=== PATIENT | female | born 1990 | race Caucasian/White ===

== ENCOUNTER 2019-11-05 23:35 | Emergency (ER) | payer SELFPAY ==
[2019-11-05 23:41] VITALS: BP 132/87; PULSE 99; RESP 30; TEMP 36.6; O2SAT 97; BMI 42.0
--- NOTE | 2019-11-06 00:02 | XRR_ITS ---
PROCEDURE INFORMATION: Exam: XR Chest, 2 Views Exam date and time: 11/06/2019 12:31 AM Age: 28 years old Clinical indication: Cough and dyspnea; Additional info: Cough, SOB TECHNIQUE: Imaging protocol: XR of the chest Views: 2 views. COMPARISON: No relevant prior studies available. FINDINGS: Lungs: Unremarkable. No consolidation. Pleural space: Unremarkable. No pleural effusion. No pneumothorax. Heart/Mediastinum: Unremarkable. No cardiomegaly. Bones/joints: Unremarkable. XR/XR chest 2V* [id number] IMPRESSION: No acute findings.
--- NOTE | 2019-11-06 00:48 | ED_ITS ---
HPI - SOB/Dyspnea General: Chief Complaint: Shortness of Breath/Dyspnea Stated Complaint: sob Time Seen by Provider: 11/06/19 00:02 Source: patient Mode of arrival: ambulatory Limitations: no limitations History of Present Illness: HPI Narrative: Patient comes in with shortness of breath. Patient reports since she has had a cough and today she is felt more short of breath than usual. Patient appears mildly unwell. Patient appears in no acute distress. Review of Systems General: Reports: 10 or more systems reviewed and unremarkable except in HPI and below Resp: Reports: dyspnea Physical Exam Const: COMMON NORMALS: no acute distress and patient oriented x3 GENERAL APPEARANCE: cooperative HENMT: COMMON NORMALS: normocephalic and Normal external nose present HEAD & SCALP: normal to inspection and normocephalic NOSE: Normal external nose present MOUTH: Normal oral and palatal mucosa present THROAT: posterior or opharynx normal Eye: GENERAL EYE: appearance normal, both eyes and all related structures Neck/C-Spine: COMMON NORMALS: full ROM Lymph: LYMPHATIC: no lymphadenopathy noted Chest: COMMONS NORMALS: normal inspection of the chest Resp: COMMON NORMALS: No retractions and No use of accessory muscles EFFORT & INSPECTION: Yes able to speak in complete sentences and Yes abnormal respiratory pattern Cardio: COMMON NORMALS: regular rate and regular rhythm RATE: regular rate RHYTHM: regular rhythm GI: COMMON NORMALS: non-tender Back/Pelvis: COMMON NORMALS: thoracic and lumbar spine normal to inspection Extremity: COMMON NORMALS: normal to inspection Neuro: COMMON NORMALS: patient oriented x3 and moves all extremities Psych: COMMON NORMALS: mental status grossly normal and cooperative Skin: COMMON NORMALS: no rashes or lesions noted GENERAL SKIN EXAM: no rashes or lesions noted Course Vital Signs: Vital signs: Vital Signs Temperature 97.9 F 11/05/19 23:41 Pulse Rate 106 H 11/06/19 01:33 Respiratory Rate 22 H 11/06/19 01:33 Blood Pressure 132/87 11/05/19 23:41 Pulse Oximetry 96 11/06/19 01:33 MDM - SOB/Dyspnea MDM Narrative: Medical decision making narrative: Patient comes in today for complaints of increased shortness of breath with cough for the last 3 days. Patient appears well. Lungs are decreased in the bases but no adventitious sounds are noted. Heart rates regular. Vital signs are normal. Differential diagnosis includes upper respiratory infection, bronchitis, pneumonia. Chest x- ray noted no signs of pneumonia at this time. Patient was given the albuterol inhaler with 2 puffs and did report some improvement in shortness of breath. We will go ahead and do COVID testing on patient I recommend self quarantine until test results. Patient was written for 3 days off work with need for follow-up with primary care in 1 week or return to the ER for worsening symptoms. Patient reports understanding and agreed to plan. Discharge Plan Discharge Patient Disposition: Home, Self-Care Clinical Impression: Acute bronchitis Qualifiers: Bronchitis organism: unspecified organism Qualified Code(s): J20.9 - Acute bronchitis, unspecified Condition: Stable Discharge Orders: Discharge Order (Routine); Ordered 11/06/19 Ordered By: Ayan Byrd Discharge Diet: Usual diet Discharge Activity: Increase activity as tolerated Patient Instructions: Acute Bronchitis (ED) Activity Restrictions/Additional Instructions: Use albuterol 2 puffs every 4 hours as needed for shortness of breath. Use at least 3-4 times a day for the next 3 days. Self quarantine for the next 3 days until COVID testing comes back. Drink plenty of water use acetaminophen or ibuprofen for pain or fever. Return to the ER for worsening difficulty breathing or new concerns. Stand Alone Forms: Work/School Release Coding Level of Care Code ED Vehicle Return Associate for [facility] Exam Comprehensive
[2019-11-06] MEDS: albuterol 8 gm MDI 2 PUFF INHALATION (01:31)
[2019-11-06 01:33] VITALS: PULSE 106; RESP 22; O2SAT 96
[2019-11-06 02:08] VITALS: BP 149/102; PULSE 110; RESP 18; O2SAT 99
[2019-11-07 23:50] LABS: Quest SARS-CoV-2 RNA NOT DETECTED (NOT DETECTED)
== END 2019-11-06 02:10 | disposition home or self-care (01) ==
PROVIDERS: Emergency Provider Nurse Practitioner Family
DX: J20.9 Acute bronchitis, unspecified (principal)
CPT/HCPCS: 12345; 71046; 87635; 94640; 99282; 99283; J3535

== ENCOUNTER 2020-02-08 04:53 | Emergency (ER) | payer SELFPAY ==
[2020-02-08 05:04] VITALS: BP 144/104; PULSE 83; RESP 17; TEMP 36.4; O2SAT 99; BMI 36.6
[2020-02-08 05:09] VITALS: BP 152/106; PULSE 84; RESP 18; O2SAT 99
--- NOTE | 2020-02-08 05:09 | W.ED.DENTAL ---
HPI - Dental/Oral General: Chief complaint: Dental/Oral Stated complaint: DENTAL PAIN Time Seen by Provider: 02/08/20 05:05 Source: patient Mode of arrival: ambulatory Limitations: no limitations History of Present Illness: HPI Narrative: Daniela is a very nice 29-year-old female who comes in complaining of right upper dental pain. She states the pain is in the posterior most molar. Patient was seen by me the previous night and a side consult and was placed on clindamycin. At that time she had no swelling at this time she still has no swelling. He states is just pain. She denies any difficulty swallowing, vomiting, difficulty speaking or fever. Associated symptoms: Denies ear or mastoid pain, fever(s), odynophagia or tongue swelling Review of Systems Const: Denies: fever(s), chills, body aches, fatigue, malaise or diaphoresis Eyes: Denies: change in vision, blurry vision, photophobia, eye discomfort, eye discharge, eye redness or yellow eyes ENMT: Reports: dental pain; Denies: throat pain, odynophagia, hoarseness, swelling of lips/tongue, ear or mastoid pain, ear discharge, change in hearing or nasal discharge Card: Denies: chest pain, palpitations, irregular heart rhythm, edema, lightheadedness, syncope, pre-syncope, dyspnea on exertion or orthopnea Resp: Denies: dyspnea, productive cough, non-productive cough, wheezing, hemoptysis or chest congestion GI: Denies: abdominal pain, nausea, vomiting, hematemesis, coffee ground emesis, heartburn, diarrhea, constipation, GI cramping, hematochezia or melena : Denies: flank pain, dysuria, urinary frequency, urinary urgency or hematuria Musc: Denies: neck pain, back pain, extremity pain, extremity swelling, joint pain, joint swelling, joint redness, joint warmth or joint stiffness Skin/Breast: Denies: rash, pruritus, erythema, skin pain or skin tenderness Neuro: Denies: headache(s), numbness in extremities, weakness in extremities, sensory changes, lack of coordination, difficulty walking, dizziness, vertigo, confusion, Slurred speech present or seizure-like activity Ganga/Lymph: Denies: easy bruising, easy bleeding, petechiae, purpura or enlarged lymph nodes All/Imm: Denies: urticaria, throat swelling, tongue swelling, facial swelling or acute wheezing PFSH ED PFSH: Medical History (Updated 02/08/20 @ 05:15 by Ricarda Duncan) No pertinent past medical history Physical Exam Const: COMMON NORMALS: no acute distress, patient oriented x3, no limitations and alert GENERAL APPEARANCE: cooperative HENMT: COMMON NORMALS: normocephalic, atraumatic, external ears normal, EAC's normal and Normal external nose present HEAD & SCALP: normal to inspection, normocephalic and atraumatic FACE & SINUS: normal facial exam and face symmetric NOSE: Normal external nose present and Normal nares present EXTERNAL EAR: Yes external ears normal EXTERNAL AUDITORY CANAL: EAC's normal MOUTH: Normal oral and palatal mucosa present, lip normal, tongue normal and other (Right superior most posterior molar with dental carry. No dental abscess. No facial swelling.) Eye: COMMON NORMALS: Equal, round and reactive pupils present and conjunctivae normal GENERAL EYE: appearance normal, both eyes and all related structures ALIGNMENT: Yes alignment normal PERIORBITAL: periorbital findings normal EYELID: eyelids normal CONJUNCTIVA: Yes conjunctivae normal SCLERA: sclerae normal PUPIL: Yes Equal, round and reactive pupils present Neck/C-Spine: COMMON NORMALS: full ROM, no lymphadenopathy, supple, no meningeal signs and no JVD GENERAL: Yes normal visual inspection and Yes trachea midline Chest: COMMONS NORMALS: normal inspection of the chest and normal palpation of entire chest wall Resp: COMMON NORMALS: normal respiratory effort, No retractions, No use of accessory muscles and clear to auscultation bilaterally EFFORT & INSPECTION: Yes able to speak in complete sentences and Yes symmetric chest movement AUSCULTATION: clear to auscultation bilaterally, no crackles, no rales, no rhonchi and no wheezes Cardio: COMMON NORMALS: no JVD, regular rate, regular rhythm, S1 normal heart sound present and S2 normal heart sound present RATE: regular rate RHYTHM: regular rhythm HEART SOUNDS: S1 normal heart sound present, S2 normal heart sound present, no click, no gallops, no murmurs and no rubs GI: COMMON NORMALS: Soft to palpation and No hepatosplenomegaly present PALPATION: Yes Soft to palpation, No Tenderness to palpation present (GI), No Guarding due to palpation present (GI), No Rigid due to palpation, Yes No hepatosplenomegaly present, No Hernia present, No Palpable mass present and No Pulsatile mass present : COMMON NORMALS: Yes no CVA tenderness BLADDER/KIDNEY EXAM: Yes no CVA tenderness EXTERNAL FEMALE EXAM: No Hernia present Back/Pelvis: COMMON NORMALS: no CVA tenderness, thoracic and lumbar spine normal to inspection, no thoracic nor lumbar tenderness and thoraco-lumbar ROM normal Extremity: COMMON NORMALS: normal to inspection, full ROM, capillary refill normal, no joint enlargement, no clubbing, cyanosis or edema and no calf tenderness Neuro: COMMON NORMALS: patient oriented x3, CN's II-XII intact bilaterally, moves all extremities, no focal motor deficits and no sensory deficits noted SENSORIUM/ORIENTATION: Yes alert MENINGEAL SIGNS: Yes no meningeal signs SPEECH: speech normal Psych: COMMON NORMALS: mental status grossly normal, Normal thought process present, cooperative, normal affect, speech normal and activity/motor behavior normal SPEECH: Yes normal speech THOUGHT PROCESS: Normal thought process present Skin: COMMON NORMALS: no rashes or lesions noted, turgor normal, no jaundice, no petechiae and no mottling GENERAL SKIN EXAM: no rashes or lesions noted and turgor normal Course Vital Signs: Vital signs: Vital Signs Temperature 97.5 F L 02/08/20 05:04 Pulse Rate 84 02/08/20 05:09 Respiratory Rate 18 02/08/20 05:09 Blood Pressure 152/106 02/08/20 05:09 Pulse Oximetry 99 02/08/20 05:09 MDM - Dental/Oral MDM Narrative: Medical decision making narrative: Patient is already on appropriate biotics. There is no sign of Kiel's angina. There is no facial swelling or edema. I will go and discharge the patient home to follow-up with her dentist on Thursday as scheduled. Discharge Plan Discharge Patient Disposition: Home Clinical Impression: Toothache Condition: Stable Discharge Orders: Discharge Order (Routine); Ordered 02/08/20 Ordered By: Ricarda Duncan Discharge Diet: Soft Mechanical Discharge Activity: Increase activity as tolerated Patient Instructions: Toothache (ED) Activity Restrictions/Additional Instructions: Please return to the ER immediately for any of the signs or symptoms listed on your discharge instruction sheets, worsening/changing of your symptoms, you are not getting better as quickly as expected, or for ANY other cause or concerns. Continue your antibiotics as previously prescribed. Be certain to follow-up with your dentist on as scheduled. Alternate Tylenol Motrin at home for pain. Return to the ER for facial swelling, fever, pain with swallowing, or for any other cause for concern. Coding Level of Care Code ED Machine Splitter for [facility]
[2020-02-08] MEDS: HYDROcodone-acetaminophen 5-325 mg Tablet 1 TAB PO (05:16)
[2020-02-08 05:20] VITALS: BP 152/106; PULSE 84; O2SAT 98
== END 2020-02-08 05:21 | disposition home or self-care (01) ==
LOC: ER 05:21
PROVIDERS: Emergency Provider Emergency Medicine
DX: K08.89 Other specified disorders of teeth and supporting structures (principal)
CPT/HCPCS: 12345; 99281; 99282

== ENCOUNTER → 2020-04-12 13:06 | Outpatient (BNVA) | payer SELFPAY | PROVIDERS: Visit Provider Family Medicine | DX: Z20.828 Contact with and (suspected) exposure to other viral communicable diseases (principal) | CPT/HCPCS: 87635 ==

== ENCOUNTER → 2020-04-13 13:08 | Outpatient (BNVA) | payer SELFPAY | PROVIDERS: Visit Provider Family Medicine | DX: Z20.828 Contact with and (suspected) exposure to other viral communicable diseases (principal) | CPT/HCPCS: 87635 ==

== ENCOUNTER → 2020-05-08 15:00 | Outpatient (BNVA) | payer SELFPAY | PROVIDERS: Visit Provider Obstetrics & Gynecology | DX: Z01.419 Encounter for gynecological examination (general) (routine) without abnormal findings (principal); Z12.4 Encounter for screening for malignant neoplasm of cervix | CPT/HCPCS: 81025; 88175 ==

== ENCOUNTER 2020-08-02 18:32 | Emergency (ER) | payer OTHER, SELFPAY ==
[2020-08-02 18:37] VITALS: BP 147/97; PULSE 95; RESP 18; TEMP 36.7; O2SAT 98; BMI 42.4
[2020-08-02 20:43] LABS: Basophils # 0.1 10^3/uL (0.0-0.1); Basophils % 0.6 %; Eosinophils # 0.1 10^3/uL (0.0-0.8); Eosinophils % 1.2 %; Hematocrit 45.6 % (37.0-47.0); Hemoglobin 15.6 g/dL (11.5-15.3); Lymphocytes # 3.2 10^3/uL (0.8-4.8); Lymphocytes % 29.2 %; Mean Corpuscular HGB Conc 34.2 g/dL (30.0-36.0); Mean Corpuscular Hemoglobin 30.4 pg (28.0-34.0); Mean Corpuscular Volume 88.9 fL (81-99); Mean Platelet Volume 10.7 fL (7.4-10.4); Monocytes # 0.6 10^3/uL (0.2-0.9); Monocytes % 5.8 %; Neutrophils # 6.81 10^3/uL (1.8-7.7); Nucleated Red Blood Cells % 0 %; Platelet Count 287 10^3/cmm (130-400); Red Blood Count 5.13 10^6/uL (4.1-5.3); Red Cell Distribution Width 11.9 % (12.1-15.1); White Blood Count 10.8 10^3/uL (4.0-10.0)
[2020-08-02 20:44] LABS: HCG Qualitative Urine. Negative (Negative)
[2020-08-02 21:00] LABS: Alanine Aminotransferase 32 U/L (0-33); Albumin Level 4.4 g/dL (3.5-5.2); Alkaline Phosphatase 71 IU/L (35-105); Anion Gap 14.3 (5-19); Aspartate Amino Transferase 18 U/L (0-32); Blood Urea Nitrogen 15 mg/dL (6-20); Calcium 10.2 mg/dL (8.5-10.5); Carbon Dioxide 23 mmol/L (22-29); Chloride 104 mmol/L (98-107); Globulin 2.5 g/dL (1.3-4.6); Glomerular Filtration Rate 83.7 mL/min (90-130); Glucose 89 mg/dL (65-115); Lipase 78 U/L (13-60); Osmolality Calculated 284 mOsm/kg (285-295); Potassium 4.3 mmol/L (3.5-5.1); Sodium 137 mmol/L (136-145); Total Bilirubin 0.3 mg/dL (0.15-1.2); Total Protein 6.9 g/dL (6.6-8.7)
--- NOTE | 2020-08-02 21:05 | CTR_ITS ---
PROCEDURE INFORMATION: Exam: CT Abdomen And Pelvis With Contrast Exam date and time: 08/02/2020 9:10 PM Age: 29 years old Clinical indication: Abdominal pain; Localized; Right lower quadrant (rlq); Prior surgery; Surgery type: Appy, gb, ; Additional info: Abd pain TECHNIQUE: Imaging protocol: Computed tomography of the abdomen and pelvis with contrast. Radiation optimization: All CT scans at this facility use at least one of these dose optimization techniques: automated exposure control; mA and/or kV adjustment per patient size (includes targeted exams where dose is matched to clinical indication); or iterative reconstruction. Contrast material: OMNI 300; Contrast volume: 95 ml; Contrast route: INTRAVENOUS (IV); COMPARISON: No relevant prior studies available. RADIATION DOSE METRICS: Total DLP (mGy-cm): 1692.81 FINDINGS: Liver: There is no focal abnormality within the liver. Gallbladder and bile ducts: There has been a cholecystectomy. Pancreas: The pancreas is normal. Spleen: The spleen is normal. Adrenal glands: The adrenal glands are normal. Kidneys and ureters: The kidneys are normal. There is no evidence of hydronephrosis. There is no evidence of renal or ureteral calcifications. Stomach and bowel: There is no evidence of colitis/diverticulitis. Appendix: There has been an appendectomy. Intraperitoneal space: There is no evidence of free intraperitoneal fluid. Vasculature: Unremarkable. No abdominal aortic aneurysm. Lymph nodes: Unremarkable. No enlarged lymph nodes. Urinary bladder: Unremarkable as visualized. Reproductive: Unremarkable as visualized. Bones/joints: Unremarkable. No acute fracture. Soft tissues: Unremarkable. CT/CT abdomen pelvis w con* [id number] IMPRESSION: No acute findings. Radiation Dose CTDIVOL = (mGy): DLP = 1692.81 (mGy-cm)
[2020-08-02] MEDS: iohexol 300 mg/mL 100 mL Btl IV (21:18)
[2020-08-02] MEDS: ondansetron 2 mg/ML SDV 2 mL 4 MG IVP (21:35)
[2020-08-02 21:36] VITALS: RESP 20; O2SAT 98
[2020-08-02] MEDS: morphine 4 mg/mL SDV 1 mL IVP (21:36)
[2020-08-02 22:18] LABS: Add Urine Microscopic? YES; Bilirubin Urine Neg (Negative); Blood Urine 3+ (Negative); Glucose Urine UA Norm (Normal); Ketones Urine Negative (Negative); Leukocyte Esterase Urine Negative (Negative); Nitrate Urine Negative (Negative); Protein Urine Neg (Negative); Urine Color Yellow (Yellow); Urobilinogen Urine Norm (Negative); pH Urine 5 (5-7)
[2020-08-02 22:19] LABS: Add Urine Culture? Yes; Bacteria Urine 4+ /hpf
--- NOTE | 2020-08-02 22:31 | W.ED.ABDPA2 ---
HPI - Abdominal Pain General: Chief Complaint: Abdominal Pain Stated Complaint: RLQ ABD PAIN Time Seen by Provider: 08/02/20 20:14 Source: patient Mode of arrival: ambulatory Limitations: no limitations History of Present Illness: HPI narrative: 29-year-old female states been having right lower quadrant abdominal pain over the last day. States that sharp in nature rates it an 8 out of 10. She denies any vomiting or diarrhea. Denies any worsening improving factors. She denies any dysuria or discharge. Denies any fever. Denies any recent injury. Associated Symptoms: Denies chills, dysuria and fever(s) Review of Systems Const: Denies: fever(s), chills, body aches or change in appetite Eyes: Denies: blurry vision or eye discomfort ENMT: Denies: throat pain or dental pain Card: Denies: chest pain Resp: Denies: dyspnea GI: Reports: abdominal pain : Denies: dysuria Musc: Denies: neck pain or back pain Skin/Breast: Denies: rash Neuro: Denies: headache(s) Psych: Denies: depression Ganga/Lymph: Denies: easy bruising All/Imm: Denies: urticaria PFSH ED PFSH: Medical History Depression No pertinent past medical history Family History Mother Diabetes Hyperlipidemia Hypertension Grandmother Diabetes maternal Grandfather Hyperlipidemia maternal Heart disease maternal and paternal Denies family history of Colon cancer Ovarian cancer Clotting disorder Breast cancer Anesthesia complication Bleeding disorder Uterine cancer Thyroid condition Stroke Social History Smoking and tobacco status: current every day smoker cigarettes Packs smoked per day: 0.5 Alcohol intake: current Alcohol intake frequency: holidays/special occasions only Alcohol type: beer, wine and hard liquor Physical Exam Const: COMMON NORMALS: no acute distress, patient oriented x3 and healthy appearing HENMT: COMMON NORMALS: normocephalic and atraumatic HEAD & SCALP: normocephalic and atraumatic Eye: COMMON NORMALS: Equal, round and reactive pupils present and EOMs intact bilaterally PUPIL: Yes Equal, round and reactive pupils present Neck/C-Spine: COMMON NORMALS: full ROM and supple Chest: COMMONS NORMALS: normal inspection of the chest and normal palpation of entire chest wall Resp: COMMON NORMALS: normal respiratory effort, No retractions, No use of accessory muscles and clear to auscultation bilaterally AUSCULTATION: clear to auscultation bilaterally Cardio: COMMON NORMALS: regular rate, regular rhythm and No murmurs present (Cardio) RATE: regular rate RHYTHM: regular rhythm GI: COMMON NORMALS: Normal to inspection, nondistended, normoactive bowel sounds present, Soft to palpation, non-tender and no masses PALPATION: Yes Soft to palpation and Yes Tenderness to palpation present (GI) Details: RLQ Extremity: COMMON NORMALS: normal to inspection and full ROM Neuro: COMMON NORMALS: patient oriented x3, moves all extremities and no focal motor deficits Psych: COMMON NORMALS: mental status grossly normal, Normal thought process present and cooperative THOUGHT PROCESS: Normal thought process present Skin: COMMON NORMALS: no rashes or lesions noted and no wounds GENERAL SKIN EXAM: no rashes or lesions noted Course Vital Signs: Vital signs: Vital Signs Temperature 98.1 F 08/02/20 18:37 Pulse Rate 95 08/02/20 18:37 Respiratory Rate 20 H 08/02/20 21:36 Blood Pressure 147/97 08/02/20 18:37 Pulse Oximetry 98 08/02/20 21:36 MDM - Abdominal Pain MDM Narrative: Medical decision making narrative: She presents with abdominal pain likely from a cystitis. Patient CT scan shows no signs of appendicitis. Patient feels improved here. We will place her on Keflex. She is to follow-up PCP and return if worsening. Lab Data: Labs: Lab Results 08/02/20 08/02/20 08/02/20 Range/Units 19:00 19:00 20:35 WBC 10.8 H (4.0-10.0) 10^3/ uL RBC 5.13 (4.1-5.3) 10^6/u L Hgb 15.6 H (11.5-15.3) g/dL Hct 45.6 (37.0-47.0) % MCV 88.9 (81-99) fL MCH 30.4 (28.0-34.0) pg MCHC 34.2 (30.0-36.0) g/dL RDW 11.9 L (12.1-15.1) % Plt Count 287 (130-400) 10^3/c mm MPV 10.7 H (7.4-10.4) fL Neut % (Auto) 63.0 % Lymph % (Auto) 29.2 % [place] % (Auto) 5.8 % Eos % (Auto) 1.2 % Baso % (Auto) 0.6 % Neut # (Auto) 6.81 (1.8-7.7) 10^3/u L Lymph # (Auto) 3.2 (0.8-4.8) 10^3/u L [place] # (Auto) 0.6 (0.2-0.9) 10^3/u L Eos # (Auto) 0.1 (0.0-0.8) 10^3/u L Baso # (Auto) 0.1 (0.0-0.1) 10^3/u L Nucleated RBC % (a uto) 0 % Nucleated RBCs # 0.0 /100WBC Sodium (136-145) mmol/L Potassium (3.5-5.1) mmol/L Chloride (98-107) mmol/L Carbon Dioxide (22-29) mmol/L Anion Gap (5-19) BUN (6-20) mg/dL Creatinine (0.5-0.9) mg/dL GFR Calculation (90-130) mL/min Glucose (65-115) mg/dL Calculated Osmolal ity (285-295) mOsm/k g Calcium (8.5-10.5) mg/dL Total Bilirubin (0.15-1.2) mg/dL AST (0-32) U/L ALT (0-33) U/L Alkaline Phosphata se (35-105) IU/L Total Protein (6.6-8.7) g/dL Albumin (3.5-5.2) g/dL Globulin (1.3-4.6) g/dL Lipase (13-60) U/L HCG, Qual Negative (Negative) Urine Color Yellow (Yellow) Urine Appearance Sl cloudy A (CLEAR) Urine pH 5 (5-7) Ur Specific Gravit y 1.020 (1.005-1.030) Urine Protein Neg (Negative) Urine Glucose (UA) Norm (Normal) Urine Ketones Negative (Negative) Urine Blood 3+ H (Negative) Urine Nitrate Negative (Negative) Urine Bilirubin Neg (Negative) Urine Urobilinogen Norm (Negative) mg/dL Ur Leukocyte Nataliia ase Negative (Negative) Urine RBC 5-10 H (0-2) /hpf Urine WBC None (0-5) /hpf Ur Squamous Epith Cells None (0-5) /hpf Amorphous Sediment Not Reportable Urine Bacteria 4+ H (NONE) /hpf 08/02/20 Range/Units 20:35 WBC (4.0-10.0) 10^3/ uL RBC (4.1-5.3) 10^6/u L Hgb (11.5-15.3) g/dL Hct (37.0-47.0) % MCV (81-99) fL MCH (28.0-34.0) pg MCHC (30.0-36.0) g/dL RDW (12.1-15.1) % Plt Count (130-400) 10^3/c mm MPV (7.4-10.4) fL Neut % (Auto) % Lymph % (Auto) % [place] % (Auto) % Eos % (Auto) % Baso % (Auto) % Neut # (Auto) (1.8-7.7) 10^3/u L Lymph # (Auto) (0.8-4.8) 10^3/u L [place] # (Auto) (0.2-0.9) 10^3/u L Eos # (Auto) (0.0-0.8) 10^3/u L Baso # (Auto) (0.0-0.1) 10^3/u L Nucleated RBC % (a uto) % Nucleated RBCs # /100WBC Sodium 137 (136-145) mmol/L Potassium 4.3 (3.5-5.1) mmol/L Chloride 104 (98-107) mmol/L Carbon Dioxide 23 (22-29) mmol/L Anion Gap 14.3 (5-19) BUN 15 (6-20) mg/dL Creatinine 0.8 (0.5-0.9) mg/dL GFR Calculation 83.7 L (90-130) mL/min Glucose 89 (65-115) mg/dL Calculated Osmolal ity 284 L (285-295) mOsm/k g Calcium 10.2 (8.5-10.5) mg/dL Total Bilirubin 0.3 (0.15-1.2) mg/dL AST 18 (0-32) U/L ALT 32 (0-33) U/L Alkaline Phosphata se 71 (35-105) IU/L Total Protein 6.9 (6.6-8.7) g/dL Albumin 4.4 (3.5-5.2) g/dL Globulin 2.5 (1.3-4.6) g/dL Lipase 78 H (13-60) U/L HCG, Qual (Negative) Urine Color (Yellow) Urine Appearance (CLEAR) Urine pH (5-7) Ur Specific Gravit y (1.005-1.030) Urine Protein (Negative) Urine Glucose (UA) (Normal) Urine Ketones (Negative) Urine Blood (Negative) Urine Nitrate (Negative) Urine Bilirubin (Negative) Urine Urobilinogen (Negative) mg/dL Ur Leukocyte Nataliia ase (Negative) Urine RBC (0-2) /hpf Urine WBC (0-5) /hpf Ur Squamous Epith Cells (0-5) /hpf Amorphous Sediment Urine Bacteria (NONE) /hpf Imaging Data ^: CT Abd/Pel: Radiologist's impression: [place] [address] CT Scan Report Signed Patient: Daniela Guy Unit #: [id number] : 1990 Age/Sex: 29 / F ADM Date: 08/02/20 Loc: ER Room/Bed: Attending Dr: Ordering Provider/Ordering MD: Daisy Albert MD Date of Service: 08/02/20 Procedure(s): CT abdomen pelvis w con* [id number] Accession Number(s): [id number] Report Number: [id number] PROCEDURE INFORMATION: Exam: CT Abdomen And Pelvis With Contrast Exam date and time: 08/02/2020 9:10 PM Age: 29 years old Clinical indication: Abdominal pain; Localized; Right lower quadrant (rlq); Prior surgery; Surgery type: Appy, gb, ; Additional info: Abd pain TECHNIQUE: Imaging protocol: Computed tomography of the abdomen and pelvis with contrast. Radiation optimization: All CT scans at this facility use at least one of these dose optimization techniques: automated exposure control; mA and/or kV adjustment per patient size (includes targeted exams where dose is matched to clinical indication); or iterative reconstruction. Contrast material: OMNI 300; Contrast volume: 95 ml; Contrast route: INTRAVENOUS (IV); COMPARISON: No relevant prior studies available. RADIATION DOSE METRICS: Total DLP (mGy-cm): 1692.81 FINDINGS: Liver: There is no focal abnormality within the liver. Gallbladder and bile ducts: There has been a cholecystectomy. Pancreas: The pancreas is normal. Spleen: The spleen is normal. Adrenal glands: The adrenal glands are normal. Kidneys and ureters: The kidneys are normal. There is no evidence of hydronephrosis. There is no evidence of renal or ureteral calcifications. Stomach and bowel: There is no evidence of colitis/diverticulitis. Appendix: There has been an appendectomy. Intraperitoneal space: There is no evidence of free intraperitoneal fluid. Vasculature: Unremarkable. No abdominal aortic aneurysm. Lymph nodes: Unremarkable. No enlarged lymph nodes. Urinary bladder: Unremarkable as visualized. Reproductive: Unremarkable as visualized. Bones/joints: Unremarkable. No acute fracture. Soft tissues: Unremarkable. CT/CT abdomen pelvis w con* [id number] IMPRESSION: No acute findings. Discharge Plan Discharge Patient Disposition: Home Clinical Impression: Acute cystitis Qualifiers: Hematuria presence: with hematuria Qualified Code(s): N30.01 - Acute cystitis with hematuria Condition: Stable Prescriptions: New cephalexin 500 mg capsule 500 mg PO TID 7 Days Qty: 21 RF: 0 Naprosyn 500 mg tablet 500 mg PO BID PRN (Reason: pain) Qty: 20 RF: 0 No Action venlafaxine [Effexor XR] 75 mg capsule,extended release 24hr 75 mg PO DAILY Qty: 30 RF: 0 Discharge Orders: Discharge ED (Routine); Ordered 08/02/20 Ordered By: Daisy Albert Referrals: Ilene Wynne FNP [Primary Care Provider] - 1-3 days Discharge Diet: Advance as tolerated Discharge Activity: Resume usual activity Patient Instructions: Urinary Tract Infection in Women (ED) Coding Level of Care Code ED Administrative Operations Coordinator for [facility]
[2020-08-02] MEDS: fluconazole 100 mg Tablet 150 MG PO (22:35)
[2020-08-02 22:40] VITALS: BP 108/89; PULSE 74; O2SAT 98
== END 2020-08-02 22:41 | disposition home or self-care (01) ==
PROVIDERS: Emergency Provider Emergency Medicine; PCP Nurse Practitioner Family
DX: N30.01 Acute cystitis with hematuria (principal); F17.210 Nicotine dependence, cigarettes, uncomplicated
CPT/HCPCS: 74177; 80053; 81001; 81025; 83690; 85025; 87077; 87086; 87186; 96374; 96375; 99284; J2270; J2405; Q9967

== ENCOUNTER → 2020-10-01 09:11 | Outpatient (BNVA) | payer OTHER, SELFPAY | PROVIDERS: PCP Nurse Practitioner Family; Visit Provider Obstetrics & Gynecology | DX: Z30.2 Encounter for sterilization (principal) | CPT/HCPCS: 87635 ==

== ENCOUNTER 2020-10-03 08:25 | Day surgery (SDC) | payer OTHER, SELFPAY ==
[2020-10-01 11:08] VITALS: BMI 40.2
[2020-10-01 12:05] LABS: Urine Appearance Hazy (CLEAR); Urine Color Yellow (Yellow)
[2020-10-01 12:06] LABS: Add Urine Microscopic? YES; Bilirubin Urine Neg (Negative); Blood Urine Neg (Negative); Glucose Urine UA Norm (Normal); Ketones Urine Negative (Negative); Leukocyte Esterase Urine Negative (Negative); Nitrate Urine Negative (Negative); OR HCG Qualitative Urine Negative (Negative); Protein Urine Neg (Negative); Urobilinogen Urine Norm (Negative); pH Urine 5 (5-7)
[2020-10-01 12:14] LABS: Add Urine Culture? No; Bacteria Urine 2+ /hpf; RBC Urine 0-4 /hpf (0-2)
[2020-10-01 12:19] LABS: Basophils # 0.1 10^3/uL (0.0-0.1); Basophils % 0.3 %; Eosinophils # 0.2 10^3/uL (0.0-0.8); Eosinophils % 1.5 %; Hematocrit 42.2 % (37.0-47.0); Hemoglobin 15.4 g/dL (11.5-15.3); Lymphocytes # 3.2 10^3/uL (0.8-4.8); Lymphocytes % 21.3 %; Mean Corpuscular HGB Conc 36.5 g/dL (30.0-36.0); Mean Corpuscular Hemoglobin 31.9 pg (28.0-34.0); Mean Corpuscular Volume 87.4 fL (81-99); Mean Platelet Volume 10.6 fL (7.4-10.4); Monocytes # 0.9 10^3/uL (0.2-0.9); Monocytes % 6.3 %; Neutrophils % 70.2 %; Nucleated Red Blood Cells % 0 %; Platelet Count 302 10^3/cmm (130-400); Red Blood Count 4.83 10^6/uL (4.1-5.3); Red Cell Distribution Width 12.1 % (12.1-15.1); White Blood Count 14.8 10^3/uL (4.0-10.0)
[2020-10-01 12:21] LABS: Blood Urea Nitrogen 11 mg/dL (6-20); Calcium 8.9 mg/dL (8.5-10.5); Carbon Dioxide 21 mmol/L (22-29); Chloride 103 mmol/L (98-107); Glomerular Filtration Rate 97.6 mL/min (90-130); Glucose 104 mg/dL (65-115); Osmolality Calculated 284 mOsm/kg (285-295); Sodium 137 mmol/L (136-145)
--- NOTE | 2020-10-01 12:22 | ANES.PREANE2 ---
Pre-Anesthetic Assessment Pre-Anesthetic Assessment: Height/Weight: Height 1.57 m Weight 99.79 kg Preop Diagnosis: Desire permanent sterilization Proposed Procedure: Operation Date: 10/03/20 09:00 Proposed Procedures p Laparoscopic bilateral Salpingectomy 68656 z30.2(Bilateral) - Chris Frausto MD Familial anesthetic complications: NOne Social: Social History: Tobacco and No alcohol Exam: Pre-Anes Outpt Exam: alert, oriented x 3, clear to auscultation bilaterally and regular rate & rhythm Airway: Cervical ROM: WNL MP: 1 Dentition: Chipped (far back L side) Metabolic: Metabolic: Morbid obesity Anesthetic Plan: ASA status: 2 Anesthesia: General Risk of > 500 ml blood loss (7ml/kg in children): No PFSH Anesthesia PFSH: Medical History Depression No pertinent past medical history Request for sterilization Surgical History H/O section x2 S/P appendectomy 2010 S/P cholecystectomy 2008 S/P tonsillectomy Family History Mother Diabetes Hyperlipidemia Hypertension Grandmother Diabetes maternal Grandfather Hyperlipidemia maternal Heart disease maternal and paternal Denies family history of Colon cancer Ovarian cancer Clotting disorder Breast cancer Anesthesia complication Bleeding disorder Uterine cancer Thyroid condition Stroke Social History (Updated 10/01/20 @ 08:25 by Raysa Garcia RN) Smoking and tobacco status: current every day smoker cigarettes Number of cigarettes per day: 1-5 and e-cigarettes E-Cigarette Details: vaporizer device and with nicotine E-cig/vape details: 5-6 times per day Alcohol intake: current Alcohol intake frequency: holidays/special occasions only Alcohol type: beer, wine and hard liquor Substance/Drug Use: never Female Reproductive History: Date of last menstrual period: 06/27/20 Data Anesthesia CBC & Chem 7: 10/01/20 11:58 10/01/20 11:58 Other Labs: Laboratory Results - last 48 hr 10/01/20 10/01/20 10/01/20 11:20 11:20 11:58 WBC 14.8 H RBC 4.83 Hgb 15.4 H Hct 42.2 MCV 87.4 MCH 31.9 MCHC 36.5 H RDW 12.1 Plt Count 302 MPV 10.6 H Neut % (Auto) 70.2 Lymph % (Auto) 21.3 [place] % (Auto) 6.3 Eos % (Auto) 1.5 Baso % (Auto) 0.3 Neut # (Auto) 10.40 H Lymph # (Auto) 3.2 [place] # (Auto) 0.9 Eos # (Auto) 0.2 Baso # (Auto) 0.1 Nucleated RBC % (auto) 0 Nucleated RBCs # 0.0 Sodium Potassium Chloride Anion Gap BUN Creatinine GFR Calculation Glucose Calcium Urine Color Yellow Urine Appearance Hazy A Urine pH 5 Ur Specific [place] 1.030 Urine Protein Neg Urine Glucose (UA) Norm Urine Ketones Negative Urine Blood Neg Urine Nitrate Negative Urine Bilirubin Neg Urine Urobilinogen Norm Ur Leukocyte Esterase Negative Urine RBC 0-4 H Urine WBC None Ur Squamous Epith Cells 5-10 H Amorphous Sediment Not Reportable Urine Bacteria 2+ H Urine HCG, Qual Negative 10/01/20 11:58 WBC RBC Hgb Hct MCV MCH MCHC RDW Plt Count MPV Neut % (Auto) Lymph % (Auto) [place] % (Auto) Eos % (Auto) Baso % (Auto) Neut # (Auto) Lymph # (Auto) [place] # (Auto) Eos # (Auto) Baso # (Auto) Nucleated RBC % (auto) Nucleated RBCs # Sodium 137 Potassium 4.0 Chloride 103 Anion Gap 17.0 BUN 11 Creatinine 0.7 GFR Calculation 97.6 Glucose 104 Calcium 8.9 Urine Color Urine Appearance Urine pH Ur Specific [place] Urine Protein Urine Glucose (UA) Urine Ketones Urine Blood Urine Nitrate Urine Bilirubin Urine Urobilinogen Ur Leukocyte Esterase Urine RBC Urine WBC Ur Squamous Epith Cells Amorphous Sediment Urine Bacteria Urine HCG, Qual Cardiac Studies: No Data to Display
[2020-10-03] VITALS (7 sets, daily range): BP systolic 97–170; BP diastolic 59–95; PULSE 99–116; RESP 15–18; TEMP 36.1–36.8; O2SAT 98–100
[2020-10-03 08:56] LABS: OR HCG Qualitative Urine Negative (Negative)
[2020-10-03] MEDS: sodium chloride 0.9% 1,000 ML 30 ML IV (09:06)
--- NOTE | 2020-10-03 09:19 | ANES.PAUD2 ---
Pre-Anesthetic Update Pre-Anesthetic Assessment: Date of Surgery/Procedure: 10/03/20 Preop Diagnosis: Desire permanent sterilization Proposed Procedure: Operation Date: 10/03/20 09:55 Proposed Procedures p Laparoscopic bilateral Salpingectomy 34081 z30.2(Bilateral) - Chrsi Frausto MD Any changes to Pre-Anesthetic Assessment?: No Last Intake: Intake Last Liquid Date 10/02/20 Last Liquid Time 23:00 Last Solid Date 10/02/20 Last Solid Time 19:00 Labs Last 48hrs: Laboratory Results - last 48 hr 10/01/20 10/01/20 10/01/20 11:20 11:20 11:58 WBC 14.8 H RBC 4.83 Hgb 15.4 H Hct 42.2 MCV 87.4 MCH 31.9 MCHC 36.5 H RDW 12.1 Plt Count 302 MPV 10.6 H Neut % (Auto) 70.2 Lymph % (Auto) 21.3 [place] % (Auto) 6.3 Eos % (Auto) 1.5 Baso % (Auto) 0.3 Neut # (Auto) 10.40 H Lymph # (Auto) 3.2 [place] # (Auto) 0.9 Eos # (Auto) 0.2 Baso # (Auto) 0.1 Nucleated RBC % (a uto) 0 Nucleated RBCs # 0.0 Sodium Potassium Chloride Carbon Dioxide Anion Gap BUN Creatinine GFR Calculation Glucose Calculated Osmolal ity Calcium Urine Color Yellow Urine Appearance Hazy A Urine pH 5 Ur Specific Gravit y 1.030 Urine Protein Neg Urine Glucose (UA) Norm Urine Ketones Negative Urine Blood Neg Urine Nitrate Negative Urine Bilirubin Neg Urine Urobilinogen Norm Ur Leukocyte Nataliia ase Negative Urine RBC 0-4 H Urine WBC None Ur Squamous Epith Cells 5-10 H Amorphous Sediment Not Reportable Urine Bacteria 2+ H Urine HCG, Qual Negative Blood Type Rho(D) Type Antibody Screen 10/01/20 10/01/20 10/03/20 11:58 11:58 08:54 WBC RBC Hgb Hct MCV MCH MCHC RDW Plt Count MPV Neut % (Auto) Lymph % (Auto) [place] % (Auto) Eos % (Auto) Baso % (Auto) Neut # (Auto) Lymph # (Auto) [place] # (Auto) Eos # (Auto) Baso # (Auto) Nucleated RBC % (a uto) Nucleated RBCs # Sodium 137 Potassium 4.0 Chloride 103 Carbon Dioxide 21 L Anion Gap 17.0 BUN 11 Creatinine 0.7 GFR Calculation 97.6 Glucose 104 Calculated Osmolal ity 284 L Calcium 8.9 Urine Color Urine Appearance Urine pH Ur Specific Gravit y Urine Protein Urine Glucose (UA) Urine Ketones Urine Blood Urine Nitrate Urine Bilirubin Urine Urobilinogen Ur Leukocyte Nataliia ase Urine RBC Urine WBC Ur Squamous Epith Cells Amorphous Sediment Urine Bacteria Urine HCG, Qual Negative Blood Type A Positive Rho(D) Type Positive / 4+ Antibody Screen Negative Vitals: Temperature 98.2 F 10/03/20 08:44 Temperature Source Temporal Artery S can 10/03/20 08:44 Pulse Rate 100 10/03/20 08:44 Respiratory Rate 18 10/03/20 08:44 Blood Pressure 170/95 10/03/20 08:44 Blood Pressure Em n 120 10/03/20 08:44 Pulse Oximetry 99 10/03/20 08:44 Oxygen Delivery Me thod 10/03/20 08:50 Exam: Pre-Anes Outpt Exam: alert, oriented x 3, clear to auscultation bilaterally and regular rate & rhythm Cardiac Studies: No Data to Display
--- NOTE | 2020-10-03 09:26 | W.PM.OPSUD ---
Surgery/Procedure H&P Update DATE OF PROCEDURE: October 03, 2020 DATE H&P PERFORMED: 10/01/20 H&P UPDATE INFORMATION: I have reviewed H&P completed within last 30 days, I have examined patient prior to procedure and No changes to prior documentation PREOP DIAGNOSIS: Desire permanent sterilization PLANNED PROCEDURE: Operation Date: 10/03/20 09:55 Proposed Procedures p Laparoscopic bilateral Salpingectomy 05521 z30.2(Bilateral) - Chris Frausto MD
--- NOTE | 2020-10-03 10:23 | P.OP_ITS ---
Operative Report Date of procedure: October 03, 2020 Pre-op Diagnosis: Desire permanent sterilization Post-op diagnosis: same Procedure Done: Laparoscopic bilateral salpingectomy via fulguration. Lysis of adhesions Specimens removed/disposition: Left and right fallopian tubes Pathology: Left and right fallopian tubes Surgeon: Chris Frausto MD Anesthesia: General Estimated blood loss (mL): 5 IV fluids (mL): 500 Urine output (mL): 25 Complications: None Condition: stable Disposition: PACU Brief History: Mrs. Guy 29-year-old female desires permanent sterilization Procedure: After informed consent, the patient was taken to the operating room where general anesthesia was administered. She was placed in the dorsal lithotomy position and prepped and draped in sterile fashion. Pre-Procedure Time-Out verifying the correct patient identity, correct procedure verified with consent, correct site and side, correct patient position, availability of correct implants and any special equipment or requirements was performed and acknowledge by the OR team. The patient was examined under anesthesia and found to have a normal uterus with normal adnexa. A weighted speculum was placed in the vagina, and the anterior lip of cervix was grasped with the single toothed tenaculum. A uterine manipulator was advanced into the endocervical canal and uterus. The tenaculum was removed after uterine manipulator was secured. The speculum was removed from the vagina. An intraumbilical incision was made with a scalpel. While tenting up on the abdomen, a Verres needle was admitted into the intra-abdominal cavity. A saline drop test was performed and noted to be within normal limits. Pneumoperitoneum was attained with 4 liters of carbon dioxide. The Verres needle was removed. A 5 mm Opitc view trocar and sleeve were admitted into the abdomen and laparoscopic confirmation of location was achieved. Initial abdominal assessment showed omental adhesions to the lower anterior abdominal wall. A second incision was made lower left quadrant. Then with the Voyant device the omental adhesions to the lower abdominal wall were lysed without complications. After all the adhesions were cleared and a third incision was made 3 cm above the symphysis pubis, and a 5 mm trocar sleeves were admitted into the abdomen under direct laparoscopic visualization without complication. A survey revealed normal abdominal anatomy after lysis of adhesion. A 5 mm blunt probe was advanced through the second trocar sleeve, and light manipulation of ovaries and uterus to assess the posterior aspects was performed. The pelvic shannon vey shows normal uterus, left and right adnexa. The left ovary was noted with a follicular cyst. The patient was placed into Trendelenburg position. The fallopian tubes were inspected bilaterally and the fimbriated ends of the fallopian tubes were visualized bilaterally. Attention was then directed to the right side. The fallopian tube and mesosalpinx were grasped and the underlying mesosalpinx was cauterized and cut using the Ligasure device. Serial cauterization and cutting was used to separate the left fallopian tube from the underlying mesosalpinx until it could be amputated cutting it approximated 2 cm from the cornua. Attention was then turned to the contralateral right fallopian tube, which was removed in similar fashion. Both specimens were removed through the trocar and sent to pathology. The instruments were removed. The suprapubic trocar port was removed under direct visualization insuring good hemostasis. The left lower quadrant port was removed under direct visualization insuring good hemostasis The carbon dioxide was allowed to escape from the abdomen. The intraumbilical trocar sleeve was withdrawn under visualization with laparoscope in the sleeve to insure hemostasis. The skin incisions were closed with 3-O Monocryl subcuticular stich and Dermabond. The instruments were removed from the vagina, and excellent hemostasis was noted. The patient tolerated the procedure well, and sponge, lap and needle count were correct times two. The patient was taken to the recovery room in good condition.
--- NOTE | 2020-10-03 10:35 | P.PCN_ITS ---
PACU note PACU note: VSS, Good respiratory effort, report to MOTTLER OPERATOR Post-Anesthesia Exam: awake
--- NOTE | 2020-10-03 10:35 | PM.PACU ---
PACU note PACU note: VSS, Good respiratory effort, report to GRADER OPERATOR Post-Anesthesia Exam: awake
[2020-10-03] MEDS: ondansetron 2 mg/ML SDV 2 mL 4 MG IVP (10:48)
[2020-10-03] MEDS: HYDROcodone-acetaminophen 5-325 mg Tablet 1 TAB PO (11:26)
--- NOTE | 2020-10-03 11:44 | PC.NURSE ---
PATIENT IS EMOTIONAL AND TEARFUL STATING SHE FEELS ANXIOUS AND NURSE REASSURED PATIENT THAT THERE IS NO MANJARREZ IN HER LEAVING BUT PATIENT IS INSISTENT THAT SHE WANTS TO GO HOME TO HER OWN BED.
--- NOTE | 2020-10-03 15:36 | ANE.PACU2 ---
Inpatient post-anesthesia follow up: Airway intact: Yes Vital signs: Temperature 97.6 F Pulse Rate 104 Respiratory Rate 18 Blood Pressure 111/60 Pulse Oximetry 100 Oxygen Delivery Me thod Room Air Oxygen Flow Rate Fraction of Inspir ed Oxygen Hydration adequate: Yes Nausea and vomiting: No Pain level: 2 Mental status: Baseline
== END 2020-10-03 12:10 | disposition home or self-care (01) ==
PROVIDERS: PCP Nurse Practitioner Family; Visit Provider Obstetrics & Gynecology
PROC: (CPT 58661; principal; 2020-10-03 09:45)
PROC: (CPT 58661; 2020-10-03 09:45)
DX: Z30.2 Encounter for sterilization (principal); E66.01 Morbid (severe) obesity due to excess calories; Z68.41 Body mass index [BMI] 40.0-44.9, adult; F17.210 Nicotine dependence, cigarettes, uncomplicated
CPT/HCPCS: 58661; 36415; 80048; 81001; 81025; 84703; 85025; 86850; 86900; 88302; 96365; J0330; J0690; J1100; J2405; J2704; J2710; J3010; J3490; J7030

== ENCOUNTER → 2020-10-16 10:31 | Outpatient (BNVA) | payer OTHER, SELFPAY | PROVIDERS: PCP Nurse Practitioner Family; Visit Provider Nurse Practitioner Family | DX: J06.9 Acute upper respiratory infection, unspecified (principal); Z20.822 Contact with and (suspected) exposure to COVID-19 | CPT/HCPCS: 87635 ==